=== PATIENT | female | born 1950 | race Caucasian/White ===

== ENCOUNTER 2020-08-01 10:01 | Outpatient (CLI) | payer OTHER | END 2020-08-01 10:11 | disposition home or self-care (01) | LOC: TOM 10:01 | PROVIDERS: ATTEND Internal Medicine | DX: K56.50 Intestinal adhesions [bands], unspecified as to partial versus complete obstruction (principal); Z12.11 Encounter for screening for malignant neoplasm of colon; Q79.0 Congenital diaphragmatic hernia ==